=== PATIENT | male | born 1970 | race Caucasian/White ===

== ENCOUNTER 2017-09-21 11:03 | Inpatient (IN) | payer SELFPAY ==
[~2017-09-21] VITALS: Ht 170.2 cm; Wt 76.4 kg
[2017-09-21] VITALS (20 sets, daily range): BP systolic 99–165; BP diastolic 71–100; PULSE 77–107; RESP 15–20; TEMP 97.8–98.8; O2SAT 100
[2017-09-21] MEDS ORDERED: SUCCINYLCHOLINE CHLORIDE 200 MG/10 ML VIAL ONE (11:08)
[2017-09-21] MEDS ORDERED: ETOMIDATE 40 MG/20 ML VIAL ONE (11:08)
[2017-09-21] MEDS ORDERED: PROPOFOL 500 MG/50 ML INJ 50 ML ONE (11:11)
[2017-09-21] MEDS ORDERED: SODIUM CHLOR 0.9% 1000 ML INJ 1,000 ML IV SCH (11:13)
[2017-09-21] MEDS ORDERED: NALOXONE HCL 2 MG/2 ML VIAL IV PUSH ONE (11:15)
[2017-09-21] MEDS ORDERED: SODIUM CHLORIDE 0.9% FLUSH 10 ML FLUSH IV FLUSH PRN ×2 (11:15→15:00)
[2017-09-21] MEDS ORDERED: PROPOFOL 1000 MG/100 ML INJ 100 ML IV PRN ×2 (11:15→17:00)
[2017-09-21] MEDS ORDERED: ETOMIDATE 20 MG/10 ML VIAL IV PUSH ONE (11:15)
[2017-09-21] MEDS ORDERED: SUCCINYLCHOLINE CHLORIDE 100 MG/5 ML SYRINGE IV PUSH ONE (11:15)
--- NOTE | 2017-09-21 11:45 | PD ---
HPI Chief Complaint: Code Blue Time Seen by Provider: 11:13 Travel History International Travel<30 days: No Contact w/Intl Traveler<30days: No Traveled to known affect area: No History of Present Illness HPI The patient is a 47-year-old male who presents emergency department via private vehicle after he became unresponsive and apparently stopped breathing in the car. When triage personnel went to get the patient out of the car, he apparently had no pulse and CPR was instituted. When the patient arrived and echo pod he was deemed ventilated via bag valve ventilations with CPR in progress. Upon physical examination the patient had no spontaneous respirations, did have a palpable femoral pulse that was tachycardic. CPR was halted, the patient continued to be bagged via bag valve ventilation. The patient was noted to have a syringe, insulin type, on his personnel. Accu-Chek was obtained, was 1:15. The patient received Narcan 1 mg intravenously, however , did not awaken. No history is obtainable from the patient and there was no family or friends with the patient when he arrived and echo pod 54. PFSH Past Medical History Cancer: No Diabetes: No Diminished Hearing: No Glaucoma: No Hepatitis: No Hiatal Hernia: No Hypertension: No Immunizations Current: No Thyroid Disease: No Past Surgical History Abdominal Surgery: Yes (BILATERAL INGUINAL HERNIA) Other Surgery: Yes (BILAT HANDS-TENDONS) Social History Alcohol Use: Yes (BEER 2 X WEEK) Tobacco Use: Yes (2 CIGS PER DAY) Substance Use: No Allergies-Medications (Allergen,Severity, Reaction): Coded Allergies: No Known Allergies (Verified Allergy, Unknown, 09/21/17) Reported Meds & Prescriptions Reported Meds & Active Scripts Active No Active Prescriptions or Reported Medications Review of Systems ROS Limitations: Clinical Condition Except as stated in HPI: all other systems reviewed are Neg Neurologic: Positive: Change in Mentation Physical Exam Exam Limitations: Clinical Condition Narrative GENERAL: GCS of 3, diaphoretic, tachycardic, nonresponsive. SKIN: Diaphoretic. HEAD: Atraumatic. Normocephalic. EYES: Pupils are 2 mm bilateral. ENT: No nasal bleeding or discharge. Mucous membranes pink and moist. NECK: Trachea midline. No JVD. CARDIOVASCULAR: Regular, tachycardic with a heart rate in the 120s. RESPIRATORY: No accessory muscle use. Clear to auscultation. Breath sounds equal bilaterally. Bilateral breath sounds via bag valve ventilation. No spontaneous respirations initially. GASTROINTESTINAL: Abdomen soft, non-tender, nondistended. No obvious distention. MUSCULOSKELETAL: No obvious deformities. No clubbing. No cyanosis. No edema. NEUROLOGICAL: GCS of 3. Back: No obvious trauma to the lumbar thoracic region. PSYCHIATRIC: Unable to obtain. Data Data Last Documented VS Vital Signs Date Time Temp Pulse Resp B/P (MAP) Pulse Ox O2 Delivery O2 Flow Rate FiO2 09/21/17 14:27 84 16 124/80 (95) 100 Ventilator 09/21/17 13:50 100 09/21/17 12:46 97.8 10.00 Orders Orders Etomidate Inj (Amidate Inj) (09/21/17 11:08) Succinylcholine Inj (Quelicin Inj) (09/21/17 11:08) Propofol 500 Mg/50 Ml Inj (Diprivan 500 (09/21/17 11:11) Electrocardiogram (09/21/17 11:13) Complete Blood Count With Diff (09/21/17 11:13) Comprehensive Metabolic Panel (09/21/17 11:13) Creatine Kinase (Cpk) (09/21/17 11:13) Prothrombin Time / Inr (Pt) (09/21/17 11:13) Act Partial Throm Time (Ptt) (09/21/17 11:13) Troponin I (09/21/17 11:13) Thyroid Stimulating Hormone (09/21/17 11:13) Urinalysis - C+S If Indicated (09/21/17 11:13) Lactic Acid Sepsis Protocol (09/21/17 11:13) Arterial Blood Gas (Abg) (09/21/17 11:13) Blood Culture (09/21/17 11:13) Chest, Single Ap (09/21/17 11:13) Ct Brain W/O Iv Contrast(Rout) (09/21/17 11:13) Blood Glucose (09/21/17 11:13) Ecg Monitoring (09/21/17 11:13) Iv Access Insert/Monitor (09/21/17 11:13) Oximetry (09/21/17 11:13) Naloxone Inj (Narcan Inj) (09/21/17 11:15) Sodium Chloride 0.9% Flush (Ns Flush) (09/21/17 11:15) Sodium Chlor 0.9% 1000 Ml Inj (Ns 1000 M (09/21/17 11:13) Drug Screen, Random Urine (09/21/17 11:13) Alcohol (Ethanol) (09/21/17 11:13) Propofol 1000 Mg/100 Ml Inj (Diprivan 10 (09/21/17 11:15) Etomidate Inj (Amidate Inj) (09/21/17 11:15) Succinylcholine Inj (Quelicin Inj) (09/21/17 11:15) Ct Pulmonary Angiogram (09/21/17 ) Urinary Catheter Insert/Apply (09/21/17 11:13) CKMB (09/21/17 11:40) CKMB% (09/21/17 11:40) Urine Culture (09/21/17 13:00) Ceftriaxone Inj (Rocephin Inj) (09/21/17 13:30) Potassium Chloride Eff (K-Lyte Cl Eff) (09/21/17 13:30) Potassium Chlor 20 Meq Premix (Kcl 20 Me (09/21/17 13:30) Iohexol 350 Inj (Omnipaque 350 Inj) (09/21/17 13:59) Admit Order (Ed Use Only) (09/21/17 14:39) Labs Laboratory Tests Test 09/21/17 11:30 09/21/17 11:40 09/21/17 11:48 09/21/17 13:00 Lactic Acid Level 2.0 mmol/L Urine Opiates Screen POS Urine Barbiturates Screen NEG Urine Amphetamines Screen POS Urine Benzodiazepines Screen NEG Urine Cocaine Screen NEG Urine Cannabinoids Screen POS White Blood Count 4.3 TH/MM3 Red Blood Count 4.59 MIL/MM3 Hemoglobin 13.7 GM/DL Hematocrit 39.2 % Mean Corpuscular Volume 85.5 FL Mean Corpuscular Hemoglobin 29.9 PG Mean Corpuscular Hemoglobin Concent 35.0 % Red Cell Distribution Width 13.3 % Platelet Count 233 TH/MM3 Mean Platelet Volume 7.0 FL Neutrophils (%) (Auto) 52.2 % Lymphocytes (%) (Auto) 31.7 % Monocytes (%) (Auto) 13.0 % Eosinophils (%) (Auto) 2.5 % Basophils (%) (Auto) 0.6 % Neutrophils # (Auto) 2.3 TH/MM3 Lymphocytes # (Auto) 1.4 TH/MM3 Monocytes # (Auto) 0.6 TH/MM3 Eosinophils # (Auto) 0.1 TH/MM3 Basophils # (Auto) 0.0 TH/MM3 CBC Comment DIFF FINAL Differential Comment Prothrombin Time 12.1 SEC Prothromb Time International Ratio 1.2 RATIO Activated Partial Thromboplast Time 22.7 SEC Blood Urea Nitrogen 8 MG/DL Creatinine 0.85 MG/DL Random Glucose 146 MG/DL Total Protein 6.0 GM/DL Albumin 3.2 GM/DL Calcium Level 7.3 MG/DL Alkaline Phosphatase 58 U/L Aspartate Amino Transf (AST/SGOT) 46 U/L Alanine Aminotransferase (ALT/SGPT) 59 U/L Total Bilirubin 0.6 MG/DL Sodium Level 138 MEQ/L Potassium Level 2.6 MEQ/L Chloride Level 100 MEQ/L Carbon Dioxide Level 29.1 MEQ/L Anion Gap 9 MEQ/L Estimat Glomerular Filtration Rate 97 ML/MIN Protein Corrected Calcium 7.9 MG/DL Total Creatine Kinase 448 U/L Creatine Kinase MB 6.8 NG/ML Creatine Kinase MB % 1.5 % Troponin I LESS THAN 0.02 NG/ML Thyroid Stimulating Hormone 3rd Gen 0.808 uIU/ML Ethyl Alcohol Level LESS THAN 3 MG/DL Blood Gas Puncture Site LT RADIAL Blood Gas Patient Temperature 98.6 Blood Gas HCO3 28 mmol/L Blood Gas Base Excess 3.8 mmol/L Blood Gas Oxygen Saturation 98 % Arterial Blood pH 7.43 Arterial Blood Partial Pressure CO2 43 mmHg Arterial Blood Partial Pressure O2 207 mmHG Arterial Blood Oxygen Content 19.6 Vol % Arterial Blood Carboxyhemoglobin 0.8 % Arterial Blood Methemoglobin 0.6 % Blood Gas Hemoglobin 13.9 G/DL Oxygen Delivery Device VENTILATOR Blood Gas Ventilator Setting A/C 16/500/PEEP5 Blood Gas Inspired Oxygen 50 % Urine Color YELLOW Urine Turbidity HAZY Urine pH 6.0 Urine Specific Magazine 1.027 Urine Protein 100 mg/dL Urine Glucose (UA) NEG mg/dL Urine Ketones 10 mg/dL Urine Occult Blood SMALL Urine Nitrite NEG Urine Bilirubin NEG Urine Urobilinogen 2.0 MG/DL Urine Leukocyte Esterase MOD Urine RBC 3 /hpf Urine WBC 9 /hpf Urine Squamous Epithelial Cells 1 /hpf Urine Transitional Epithelial Cells <1 /hpf Urine Bacteria RARE /hpf Urine Hyaline Casts 9 /lpf Urine Granular Casts 3 /lpf Urine Mucus FEW /lpf Microscopic Urinalysis Comment CATH-CULTURE IND [facility] Medical Decision Making Medical Screen Exam Complete: Yes Emergency Medical Condition: Yes Medical Record Reviewed: Yes Interpretation(s) EKG reveals normal sinus rhythm with a rate of 93. RSR prime V1. Last Impressions Head CT 09/21/17 1113 Signed Impressions: Service Date/Time: Thursday, September 21, 2017 13:59 - CONCLUSION: 1. No acute intracranial abnormality identified. Neftali Tinoco MD Chest X-Ray 09/21/17 1113 Signed Impressions: Service Date/Time: Thursday, September 21, 2017 11:26 - CONCLUSION: 1. Support apparatus in good position. Minimal basilar dependent atelectasis. Chucho Walker MD CT Angiography 09/21/17 0000 Signed Impressions: Service Date/Time: Thursday, September 21, 2017 14:07 - CONCLUSION: 1. There are atelectatic changes in both lower lobes. 2. No pulmonary embolus is identified. 3. Endotracheal and nasogastric tubes in satisfactory position. Neftali Tinoco MD Laboratory Tests Test 09/21/17 11:30 09/21/17 11:40 09/21/17 11:48 09/21/17 13:00 Lactic Acid Level 2.0 mmol/L Urine Opiates Screen POS Urine Barbiturates Screen NEG Urine Amphetamines Screen POS Urine Benzodiazepines Screen NEG Urine Cocaine Screen NEG Urine Cannabinoids Screen POS White Blood Count 4.3 TH/MM3 Red Blood Count 4.59 MIL/MM3 Hemoglobin 13.7 GM/DL Hematocrit 39.2 % Mean Corpuscular Volume 85.5 FL Mean Corpuscular Hemoglobin 29.9 PG Mean Corpuscular Hemoglobin Concent 35.0 % Red Cell Distribution Width 13.3 % Platelet Count 233 TH/MM3 Mean Platelet Volume 7.0 FL Neutrophils (%) (Auto) 52.2 % Lymphocytes (%) (Auto) 31.7 % Monocytes (%) (Auto) 13.0 % Eosinophils (%) (Auto) 2.5 % Basophils (%) (Auto) 0.6 % Neutrophils # (Auto) 2.3 TH/MM3 Lymphocytes # (Auto) 1.4 TH/MM3 Monocytes # (Auto) 0.6 TH/MM3 Eosinophils # (Auto) 0.1 TH/MM3 Basophils # (Auto) 0.0 TH/MM3 CBC Comment DIFF FINAL Differential Comment Prothrombin Time 12.1 SEC Prothromb Time International Ratio 1.2 RATIO Activated Partial Thromboplast Time 22.7 SEC Blood Urea Nitrogen 8 MG/DL Creatinine 0.85 MG/DL Random Glucose 146 MG/DL Total Protein 6.0 GM/DL Albumin 3.2 GM/DL Calcium Level 7.3 MG/DL Alkaline Phosphatase 58 U/L Aspartate Amino Transf (AST/SGOT) 46 U/L Alanine Aminotransferase (ALT/SGPT) 59 U/L Total Bilirubin 0.6 MG/DL Sodium Level 138 MEQ/L Potassium Level 2.6 MEQ/L Chloride Level 100 MEQ/L Carbon Dioxide Level 29.1 MEQ/L Anion Gap 9 MEQ/L Estimat Glomerular Filtration Rate 97 ML/MIN Protein Corrected Calcium 7.9 MG/DL Total Creatine Kinase 448 U/L Creatine Kinase MB 6.8 NG/ML Creatine Kinase MB % 1.5 % Troponin I LESS THAN 0.02 NG/ML Thyroid Stimulating Hormone 3rd Gen 0.808 uIU/ML Ethyl Alcohol Level LESS THAN 3 MG/DL Blood Gas Puncture Site LT RADIAL Blood Gas Patient Temperature 98.6 Blood Gas HCO3 28 mmol/L Blood Gas Base Excess 3.8 mmol/L Blood Gas Oxygen Saturation 98 % Arterial Blood pH 7.43 Arterial Blood Partial Pressure CO2 43 mmHg Arterial Blood Partial Pressure O2 207 mmHG Arterial Blood Oxygen Content 19.6 Vol % Arterial Blood Carboxyhemoglobin 0.8 % Arterial Blood Methemoglobin 0.6 % Blood Gas Hemoglobin 13.9 G/DL Oxygen Delivery Device VENTILATOR Blood Gas Ventilator Setting A/C 16/500/PEEP5 Blood Gas Inspired Oxygen 50 % Urine Color YELLOW Urine Turbidity HAZY Urine pH 6.0 Urine Specific Magazine 1.027 Urine Protein 100 mg/dL Urine Glucose (UA) NEG mg/dL Urine Ketones 10 mg/dL Urine Occult Blood SMALL Urine Nitrite NEG Urine Bilirubin NEG Urine Urobilinogen 2.0 MG/DL Urine Leukocyte Esterase MOD Urine RBC 3 /hpf Urine WBC 9 /hpf Urine Squamous Epithelial Cells 1 /hpf Urine Transitional Epithelial Cells <1 /hpf Urine Bacteria RARE /hpf Urine Hyaline Casts 9 /lpf Urine Granular Casts 3 /lpf Urine Mucus FEW /lpf Microscopic Urinalysis Comment CATH-CULTURE IND Differential Diagnosis Differential diagnosis includes substance abuse, opiate overdose, hypoglycemia, intracranial hemorrhage, pulmonary embolism, dissection, encephalopathy, alcohol intoxication, STEMI. Narrative Course IV was established, labs are drawn and sent, the patient was placed on cardiac telemetry monitoring and continuous pulse oximetry monitoring. The patient's Accu-Chek was 115. Patient was fishing guide Narcan 1 mg intravenously, however, did not awaken. The patient had a pulse, but no visible respiratory effort. Therefore, the patient was intubated using rapid sequence intubation with etomidate and succinylcholine. The patient was noted to be diaphoretic with very poor respiratory effort, may be significant opiate overdose such as fentanyl or heroin. CT the brain and pulmonary angiogram are negative. I had a discussion with the family member who states the patient has a history of IV drug use and was placing things on Facebook in regards to drugs. The patient's tox screen is positive for cannabinoids, methamphetamines, and opiates. The patient has been intubated, will be admitted to the intensive care unit. Critical Care Narrative Aggregate critical care time was 40 minutes. Time to perform other separately billable procedures was not included in the critical care time. My time did not include minutes spent treating any other patients simultaneously or on activities that did not directly contribute to the patient's treatment. The services I provided to this patient were to treat and/or prevent clinically significant deterioration that could result in: Anoxia, hypoxia, aspiration, arrhythmia, . I provided critical care services requiring my management, as noted below: Chart data review, documentation time, medication orders and management, vital sign assessments/reviewing monitor data, ordering and reviewing lab tests, ordering and interpreting/reviewing x-rays and diagnostic studies, care of the patient and discussion of the patient with the admitting physicians. Procedures Procedure Narrative The patient was put in optimal position for the procedure. Rapid sequence intubation was initiated by me using 20 milligrams of etomidate IV and 100 milligrams of succinylcholine IV. The patient was intubated with a 8-0 cuffed endotracheal tube. Tube placement was confirmed by visualization of the tube and balloon passing through the cords, capnometry and subsequent chest x-ray. Breath sounds were equal and well aerated bilaterally postintubation. No breath sounds over stomach. Patient tolerated procedure well. Physician Communication Physician Communication A call was placed the on-call assisted living assistant for admission. I discussed the patient with Dr. Genao who agrees with admission. Diagnosis Primary Impression: Drug overdose Qualified Codes: T50.904A - Poisoning by unspecified drugs, medicaments and biological substances, undetermined, initial encounter Additional Impression: Respiratory distress Admitting Information Admitting Physician Requests: Admit Scripts No Active Prescriptions or Reported Meds Condition: Serious hDiraj Camejo MD Sep 21, 2017 11:45
--- NOTE | 2017-09-21 12:08 | RADRPT ---
EXAM DATE/TIME: 09/21/2017 11:26 [facility] COMPARISON: No previous studies available for comparison. INDICATIONS : Intubation. MEDICAL HISTORY : None. SURGICAL HISTORY : None. ENCOUNTER: Initial ACUITY: 1 day PAIN SCORE: Non-responsive. LOCATION: Bilateral chest FINDINGS: Endotracheal tube tip in satisfactory position. NG enters stomach. Minimal basilar atelectasis. CONCLUSION: 1. Support apparatus in good position. Minimal basilar dependent atelectasis. Chucho Walker MD on September 21, 2017 at 12:05 Board Certified Radiologist. This report was verified electronically.
[2017-09-21 12:09] LABS: AUTOMATED NEUTROPHIL # 2.3 TH/MM3 (1.8-7.7); BASOPHIL % 0.6 % (0.0-2.0); EOSINOPHIL # 0.1 TH/MM3 (0-0.4); EOSINOPHIL % 2.5 % (0.0-4.0); HEMATOCRIT 39.2 % (39.0-51.0); HEMOGLOBIN 13.7 GM/DL (13.0-17.0); LYMPH % 31.7 % (9.0-44.0); LYMPHOCYTE # 1.4 TH/MM3 (1.0-4.8); MEAN CELL VOLUME 85.5 FL (80.0-100.0); MEAN CORPUSCULAR HEMOGLOBIN 29.9 PG (27.0-34.0); MONOCYTE # 0.6 TH/MM3 (0-0.9); NEUT % 52.2 % (16.0-70.0); PLATELET COUNT 233 TH/MM3 (150-450); RED BLOOD COUNT 4.59 MIL/MM3 (4.50-5.90); RED CELL DISTRIBUTION WIDTH 13.3 % (11.6-17.2); WHITE BLOOD COUNT 4.3 TH/MM3 (4.0-11.0)
[2017-09-21 12:19] LABS: INTERNATIONAL NORMALIZED RATIO 1.2 RATIO; PROTHROMBIN TIME - PATIENT 12.1 SEC (9.8-11.6)
[2017-09-21 12:33] LABS: ALBUMIN 3.2 GM/DL (3.4-5.0); ALKALINE PHOSPHATASE 58 U/L (45-117); ALT (GPT) 59 U/L (12-78); AST (GOT) 46 U/L (15-37); BICARBONATE 29.1 MEQ/L (21.0-32.0); BLOOD UREA NITROGEN 8 MG/DL (7-18); CALCIUM 7.3 MG/DL (8.5-10.1); CALCIUM-PROTEIN CORRECTED 7.9 MG/DL (8.5-10.1); CHLORIDE 100 MEQ/L (98-107); CREATININE 0.85 MG/DL (0.60-1.30); GLOMERULAR FILTRATION RATE 97 ML/MIN (>89); GLUCOSE,RANDOM 146 MG/DL (74-106); SODIUM (NA) 138 MEQ/L (136-145); TOTAL BILIRUBIN ADULT 0.6 MG/DL (0.2-1.0); TROPONIN I LESS THAN 0.02 NG/ML (0.02-0.05)
[2017-09-21 13:24] LABS: BACTERIA, URINE RARE /hpf; BILIRUBIN, URINE NEG (NEG); BLOOD, URINE SMALL (NEG); GLUCOSE,URINE NEG (NEG); HYALINE CAST, URINE 9 /lpf (RARE); KETONE, URINE 10 mg/dL (NEG); MUCUS URINE FEW /lpf (OCC); NITRITE,URINE NEG (NEG); SQUAMOUS EPITHELIAL CELL URINE 1 /hpf (0-5); TRANSITIONAL EPI CELLS, URINE <1 /hpf; URINE COLOR YELLOW (YELLW/STRAW); URINE LEUKOCYTE ESTERASE MOD (NEG)
[2017-09-21] MEDS ORDERED: cefTRIAXone INJ 1,000 MG in SODIUM CHLORIDE 0.9% INJ 100 ML IV ONE (13:30)
[2017-09-21] MEDS ORDERED: POTASSIUM CHLOR 20 MEQ PREMIX 100 ML IV ONE (13:30)
[2017-09-21] MEDS: POTASSIUM CHLORIDE 25 MEQ EFFERVESCENT TAB NG SCH (13:41)
[2017-09-21] MEDS ORDERED: IOHEXOL 350 MG/ML 10 ML VIAL (for RAD DIAG) IVCONTRAST ONE (13:59)
--- NOTE | 2017-09-21 14:18 | RADRPT ---
EXAM DATE/TIME: 09/21/2017 13:59 [facility] COMPARISON: No previous studies available for comparison. INDICATIONS : Altered mental status, Syncope, post code, no pulse at the scene. RADIATION DOSE: 52.85 CTDIvol (mGy) ; Tabletop CT Head MEDICAL HISTORY : None SURGICAL HISTORY : Inguinal hernia repair. ENCOUNTER: Initial ACUITY: 1 day PAIN SCALE: Non-responsive LOCATION: cranial TECHNIQUE: Multiple contiguous axial images were obtained of the head. Using automated exposure control and adj ustment of the mA and/or kV according to patient size, radiation dose was kept as low as reasonably a chievable to obtain optimal diagnostic quality images. DICOM format image data is available electro nically for review and comparison. FINDINGS: CEREBRUM: The ventricles are normal for age. No evidence of midline shift, mass lesion, hemorrhage or acute in farction. No extra-axial fluid collections are seen. POSTERIOR FOSSA: The cerebellum and brainstem are intact. The 4th ventricle is midline. The cerebellopontine angle i s unremarkable. EXTRACRANIAL: The visualized portion of the orbits is intact. SKULL: The calvaria is intact. No evidence of skull fracture. CONCLUSION: 1. No acute intracranial abnormality identified. Neftlai Tinoco MD on September 21, 2017 at 14:15 Board Certified Radiologist. This report was verified electronically.
--- NOTE | 2017-09-21 14:20 | RADRPT ---
EXAM DATE/TIME: 09/21/2017 14:07 [facility] COMPARISON: CT BRAIN W/O CONTRAST, September 21, 2017, 13:59. INDICATIONS : Altered mental status, Syncope, post code, no pulse at the scene IV CONTRAST: 75 cc Omnipaque 350 (iohexol) IV RADIATION DOSE: 17.46 CTDIvol (mGy) MEDICAL HISTORY : None SURGICAL HISTORY : Inguinal hernia repair. ENCOUNTER: Initial ACUITY: 1 day PAIN SCALE: Non-responsive LOCATION: chest TECHNIQUE: Volumetric scanning of the chest was performed using a pulmonary embolism protocol MIP images were re constructed. Using automated exposure control and adjustment of the mA and/or kV according to patien t size, radiation dose was kept as low as reasonably achievable to obtain optimal diagnostic quality images. DICOM format image data is available electronically for review and comparison. Follow-up recommendations for detected pulmonary nodules are based at a minimum on nodule size and pa tient risk factors according to Fleischner Society Guidelines. FINDINGS: The examination is of good diagnostic quality. No pulmonary embolus is identified. The heart is normal in size. There is no pericardial effusion identified. No significant hilar, media stinal or axillary adenopathy is present. There is minimal atherosclerotic plaquing in the coronary a rteries. Imaging through the pulmonary parenchyma is provided. These demonstrate atelectatic changes in both l ower lobes. No pleural effusion is seen. No suspicious mass lesions are identified. There is a nasogastric tube present. The limited portions of upper abdomen visualized are unremarkabl e. The endotracheal tube is in satisfactory position. CONCLUSION: 1. There are atelectatic changes in both lower lobes. 2. No pulmonary embolus is identified. 3. Endotracheal and nasogastric tubes in satisfactory position. Neftali Tinoco MD on September 21, 2017 at 14:16 Board Certified Radiologist. This report was verified electronically.
[2017-09-21] MEDS ORDERED: BISACODYL 10 MG SUPP RECTAL PRN (15:00)
[2017-09-21] MEDS ORDERED: MAGNESIUM HYDROXIDE SUSP 30 ML CUP PO PRN (15:00)
[2017-09-21] MEDS ORDERED: POTASSIUM CHLORIDE 25 MEQ EFFERVESCENT TAB PO PRN (15:00)
[2017-09-21] MEDS ORDERED: POTASSIUM CHLOR 40 MEQ PREMIX 100 ML IV-CENTRAL PRN ×2 (15:00)
[2017-09-21] MEDS ORDERED: DEXTROSE 50% IN WATER 50 ML VIAL(D50) IV PUSH PRN (15:00)
[2017-09-21] MEDS ORDERED: LACTULOSE SYRUP 20 GM/30 ML CUP PO PRN (15:00)
[2017-09-21] MEDS ORDERED: GLUCAGON 1 MG/ML VIAL OTHER PRN (15:00)
[2017-09-21] MEDS ORDERED: MAGNESIUM OXIDE 400 MG TAB PO PRN (15:00)
[2017-09-21] MEDS ORDERED: POTASSIUM CHLOR 20 MEQ PREMIX 100 ML IV PRN ×2 (15:00)
[2017-09-21] MEDS ORDERED: POTASSIUM PHOSPHATE INJ 30 MMOL in SODIUM CHLOR 0.9% 250 ML INJ 250 ML IV PRN (15:00)
[2017-09-21] MEDS ORDERED: POTASSIUM PHOSPHATE MONOBASIC 500 MG TAB PO/TUBE PRN (15:00)
[2017-09-21] MEDS ORDERED: SENNOSIDES 8.6 MG TAB PO PRN (15:00)
[2017-09-21] MEDS ORDERED: ONDANSETRON HCL 4 MG/2 ML VIAL IV PUSH PRN (15:00)
[2017-09-21] MEDS ORDERED: POTASSIUM PHOSPHATE MONOBASIC 500 MG TAB PO PRN (15:00)
[2017-09-21] MEDS ORDERED: CHLORHEXIDINE GLUCONATE 2 % 1 PACK (2 CLOTHS) TOP PRN (15:00)
[2017-09-21] MEDS ORDERED: RESP: ALBUTEROL 2.5 MG/3 ML NEB (PRN) INH (15:00)
[2017-09-21] MEDS ORDERED: MAGNESIUM SULFATE INJ 4 GM in SODIUM CHLORIDE 0.9% INJ 92 ML IV PRN (15:00)
[2017-09-21] MEDS ORDERED: MISCELLANEOUS NURSING INFORMATION XX SCH (15:00)
[2017-09-21] MEDS ORDERED: MAGNESIUM SULFATE INJ 2 GM in SODIUM CHLORIDE 0.9% INJ 96 ML IV PRN (15:00)
[2017-09-21] MEDS ORDERED: SODIUM PHOSPHATE INJ 30 MMOL in SODIUM CHLOR 0.9% 250 ML INJ 240 ML IV PRN (15:00)
--- NOTE | 2017-09-21 15:16 | HHI.HP ---
[facility] Service Critical Care Medicine Primary Care Physician No Primary Care Physician Admission Diagnosis drug overdose, respiratory distress Diagnosis: (1) Acute respiratory failure Diagnosis: Principal (2) Cardiopulmonary arrest with successful resuscitation Diagnosis: Principal (3) Tobacco abuse Diagnosis: Secondary (4) Elevated AST (SGOT) Diagnosis: Secondary (5) Elevated CPK Diagnosis: Principal (6) Hyperglycemia Diagnosis: Secondary (7) Hypocalcemia Diagnosis: Principal (8) Hypokalemia Diagnosis: Principal (9) Acute opioid intoxication delirium without use disorder Diagnosis: Principal (10) Tetrahydrocannabinol (THC) use disorder, mild, abuse Diagnosis: Principal (11) Amphetamine user Diagnosis: Principal Chief Complaint: Patient dropped off unresponsive. CPR initiated due to hypotension likely respiratory Travel History International Travel<30 Days: No Contact w/Intl Traveler <30 Da: No Traveled to Known Affected Are: No History of Present Illness 47-year-old male 09/21/2017. Past medical history includes alcohol and tobacco use. Today, this individual presented to the [place] emergency department via private vehicle after he became unresponsive and apparently stopped breathing in the car. When triage personnel went to get the patient out of the car, he apparently had no pulse and CPR was instituted. When the patient arrived and echo pod he was deemed ventilated via bag valve ventilations with CPR in progress. Upon physical examination the patient had no spontaneous respirations, did have a palpable femoral pulse that was tachycardic. CPR was halted, the patient continued to be bagged via bag valve ventilation. The patient was noted to have a syringe, insulin type, on his personnel. Accu-Chek was obtained, was 115 The patient received naloxone 1 mg intravenously, however, did not awaken. No history is obtainable from the patient and there was no family or friends with the patient when he arrived and echo pod 54. She was intubated using 20 mg etomidate and the [address] brain revealed no acute intracranial findings. CT pulmonary angiogram negative. Laboratories revealed a potassium 2.6 which is received 70 mEq, elevated CPK. Normal troponin. TSH 0.8. Urine toxicology screen revealed amphetamines, opiates and THC. Patient is currently arousable on ventilator but not following commands. Sister at bedside states that possible inadvertent drug overdose Review of Systems ROS Limitations: Intubated Past Family Social History Allergies: Coded Allergies: No Known Allergies (Verified Allergy, Unknown, 09/21/17) Past Medical History Alcohol use Tobacco abuse Elevated BMI Past Surgical History bilateral inguinal hernia repair bilateral hand tendon repair Reported Medications None Active Ordered Medications Reviewed in EMR Family History Mother with coronary disease/hypertension. Father with vascular dementia, interstitial hemorrhage and hypertension Social History 2 beers weekly. 2 cigars daily. Urine tox screen positive for opiates, amphetamines and THC Physical Exam Vital Signs Vital Signs Date Time Temp Pulse Resp B/P (MAP) Pulse Ox O2 Delivery O2 Flow Rate FiO2 09/21/17 14:27 84 16 124/80 (95) 100 Ventilator 09/21/17 13:50 100 100 09/21/17 12:46 97.8 82 18 115/90 (98) 100 Ventilator 10.00 50 09/21/17 12:04 86 100 Ventilator 09/21/17 12:03 89 16 128/82 (97) 100 Ventilator 09/21/17 11:49 92 15 133/85 (101) 100 09/21/17 11:31 95 20 100 Ventilator 09/21/17 11:30 100 50 09/21/17 11:29 100 09/21/17 11:15 100 100 09/21/17 11:15 96 16 148/93 (111) 100 Ventilator 09/21/17 11:13 100 09/21/17 11:08 107 20 165/100 (121) 100 10.00 Physical Exam GENERAL: 47-year-old male currently orotracheally intubated SKIN: Warm and dry. Track khan bilateral upper extremities HEAD: Atraumatic. Normocephalic. EYES: Pupils equal and round. No scleral icterus. No injection or drainage. ENT: No nasal bleeding or discharge. Mucous membranes pink and moist. NECK: Trachea midline. No JVD. CARDIOVASCULAR: Regular rate and rhythm. S1, S2 predose without murmur RESPIRATORY: No accessory muscle use. Clear to auscultation. Breath sounds equal bilaterally. GASTROINTESTINAL: Abdomen soft, non-tender, nondistended. Hepatic and splenic margins not palpable. MUSCULOSKELETAL: Extremities without clubbing, cyanosis, or edema. No obvious deformities. NEUROLOGICAL: Arousable to ventilator. Follows commands by moving all 4 extremities. Laboratory Laboratory Tests Test 09/21/17 11:30 09/21/17 11:40 09/21/17 11:48 09/21/17 13:00 Lactic Acid Level 2.0 Urine Opiates Screen POS Urine Barbiturates Screen NEG Urine Amphetamines Screen POS Urine Benzodiazepines Screen NEG Urine Cocaine Screen NEG Urine Cannabinoids Screen POS White Blood Count 4.3 Red Blood Count 4.59 Hemoglobin 13.7 Hematocrit 39.2 Mean Corpuscular Volume 85.5 Mean Corpuscular Hemoglobin 29.9 Mean Corpuscular Hemoglobin Concent 35.0 Red Cell Distribution Width 13.3 Platelet Count 233 Mean Platelet Volume 7.0 Neutrophils (%) (Auto) 52.2 Lymphocytes (%) (Auto) 31.7 Monocytes (%) (Auto) 13.0 Eosinophils (%) (Auto) 2.5 Basophils (%) (Auto) 0.6 Neutrophils # (Auto) 2.3 Lymphocytes # (Auto) 1.4 Monocytes # (Auto) 0.6 Eosinophils # (Auto) 0.1 Basophils # (Auto) 0.0 CBC Comment DIFF FINAL Differential Comment Prothrombin Time 12.1 Prothromb Time International Ratio 1.2 Activated Partial Thromboplast Time 22.7 Blood Urea Nitrogen 8 Creatinine 0.85 Random Glucose 146 Total Protein 6.0 Albumin 3.2 Calcium Level 7.3 Alkaline Phosphatase 58 Aspartate Amino Transf (AST/SGOT) 46 Alanine Aminotransferase (ALT/SGPT) 59 Total Bilirubin 0.6 Sodium Level 138 Potassium Level 2.6 Chloride Level 100 Carbon Dioxide Level 29.1 Anion Gap 9 Estimat Glomerular Filtration Rate 97 Protein Corrected Calcium 7.9 Total Creatine Kinase 448 Creatine Kinase MB 6.8 Creatine Kinase MB % 1.5 Troponin I LESS THAN 0.02 Thyroid Stimulating Hormone 3rd Gen 0.808 Ethyl Alcohol Level LESS THAN 3 Blood Gas Puncture Site LT RADIAL Blood Gas Patient Temperature 98.6 Blood Gas HCO3 28 Blood Gas Base Excess 3.8 Blood Gas Oxygen Saturation 98 Arterial Blood pH 7.43 Arterial Blood Partial Pressure CO2 43 Arterial Blood Partial Pressure O2 207 Arterial Blood Oxygen Content 19.6 Arterial Blood Carboxyhemoglobin 0.8 Arterial Blood Methemoglobin 0.6 Blood Gas Hemoglobin 13.9 Oxygen Delivery Device VENTILATOR Blood Gas Ventilator Setting A/C 16/500/PEEP5 Blood Gas Inspired Oxygen 50 Urine Color YELLOW Urine Turbidity HAZY Urine pH 6.0 Urine Specific [place] 1.027 Urine Protein 100 Urine Glucose (UA) NEG Urine Ketones 10 Urine Occult Blood SMALL Urine Nitrite NEG Urine Bilirubin NEG Urine Urobilinogen 2.0 Urine Leukocyte Esterase MOD Urine RBC 3 Urine WBC 9 Urine Squamous Epithelial Cells 1 Urine Transitional Epithelial Cells <1 Urine Bacteria RARE Urine Hyaline Casts 9 Urine Granular Casts 3 Urine Mucus FEW Microscopic Urinalysis Comment CATH-CULTURE IND Date/Time Source Procedure Growth Status 09/21/17 11:40 Blood Peripheral Aerobic Blood Culture Pending Received 09/21/17 11:40 Blood Peripheral Anaerobic Blood Culture Pending Received 09/21/17 13:00 Urine Clean Catch Urine Culture Pending Received Result Diagram: 09/21/17 1140 09/21/17 1140 Imaging Last Impressions Head CT 09/21/17 1113 Signed Impressions: Service Date/Time: Thursday, September 21, 2017 13:59 - CONCLUSION: 1. No acute intracranial abnormality identified. Neftali Tinoco MD Chest X-Ray 09/21/17 1113 Signed Impressions: Service Date/Time: Thursday, September 21, 2017 11:26 - CONCLUSION: 1. Support apparatus in good position. Minimal basilar dependent atelectasis. Chucho Walker MD CT Angiography 09/21/17 0000 Signed Impressions: Service Date/Time: Thursday, September 21, 2017 14:07 - CONCLUSION: 1. There are atelectatic changes in both lower lobes. 2. No pulmonary embolus is identified. 3. Endotracheal and nasogastric tubes in satisfactory position. Neftali Tinoco MD Septic Shock Reassessment Septic shock perfusion: reassessment completed Caprini VTE Risk Assessment Caprini VTE Risk Assessment: Mod/High Risk (score >= 2) Caprini Risk Assessment Model Point Value = 1 Point Value = 2 Point Value = 3 Point Value = 5 Age 41-60 Minor surgery BMI > 25 kg/m2 Swollen legs Varicose veins or History of unexplained or recurrent spontaneous Oral contraceptives or hormone replacement Sepsis (< 1 month) Serious lung disease, including pneumonia (< 1 month) Abnormal pulmonary function Acute myocardial infarction Congestive heart failure (< 1 month) History of inflammatory bowel disease Medical patient at bed rest Age 61-74 Arthroscopic surgery Major open surgery (> 45 min) Laparoscopic surgery (> 45 min) Malignancy Confined to bed (> 72 hours) Immobilizing plaster cast Central venous access Age >= 75 History of VTE Family history of VTE Factor V Leiden Prothrombin [id number] Lupus anticoagulant Anticardiolipin antibodies Elevated serum homocysteine Heparin-induced thrombocytopenia Other congenital or acquired thrombophilia Stroke (< 1 month) Elective arthroplasty Hip, pelvis, or leg fracture Acute spinal cord injury (< 1 month) Prophylaxis Regimen Total Risk Factor Score Risk Level Prophylaxis Regimen 0-1 Low Early ambulation 2 Moderate Order ONE of the following: *Sequential Compression Device (SCD) *Heparin 5000 units SQ BID 3-4 Higher Order ONE of the following medications: *Heparin 5000 units SQ TID *Enoxaparin/Lovenox 40 mg SQ daily (WT < 150 kg, CrCl > 30 mL/min) *Enoxaparin/Lovenox 30 mg SQ daily (WT < 150 kg, CrCl > 10-29 mL/min) *Enoxaparin/Lovenox 30 mg SQ BID (WT < 150 kg, CrCl > 30 mL/min) AND/OR *Sequential Compression Device (SCD) 5 or more Highest Order ONE of the following medications: *Heparin 5000 units SQ TID (Preferred with Epidurals) *Enoxaparin/Lovenox 40 mg SQ daily (WT < 150 kg, CrCl > 30 mL/min) *Enoxaparin/Lovenox 30 mg SQ daily (WT < 150 kg, CrCl > 10-29 mL/min) *Enoxaparin/Lovenox 30 mg SQ BID (WT < 150 kg, CrCl > 30 mL/min) AND *Sequential Compression Device (SCD) Assessment and Plan Assessment and Plan Neuro/Psych: Acute toxic encephalopathy UDS positive for THC, amphetamines and opiates Propofol/fentanyl drips titrated for sedation/analgesia while intubated Goal of RASS of -[address] brain revealed no acute intracranial findings CV: Cardiopulmonary arrest likely secondary to pulmonary/apnea Initial troponin 0 0.02. EKG revealed no acute ST elevation. Heart rate 93. A complete right bundle branch block. Troponins every 62 days. Check 2D echocardiogram Currently on normal saline at 84 cc an hour Not requiring vasopressors and/or antihypertensives Resp: Acute respiratory failure Tobacco abuse [facility] 16500/07/13/ Ventilator bundle Albuterol/ipratropium aerosols every 6 hours with albuterol aerosols every 2 hours as needed for dyspnea Spontaneous breathing trials when clinically indicated CT pulmonary abdomen revealed no central pulmonary embolus and. Chest x-ray revealed bilateral atelectasis Self education booklet for cessation will be provided when appropriate GI: Elevated AST Hypoalbuminemia Patient is currently n.p.o. NG tube to wall suction Pantoprazole for GI prophylaxis Docusate sodium/senna 1 tablet twice daily for bowel regimen : Tim catheter has been placed for accurate I's and O's in a critically ill patient Endo: Hyperglycemia Novulin R sliding-scale/low regimen with Accu-Cheks every 6 hours to maintain euglycemia TSH 0.80 Renal: Elevated CPK Monitor urine output Accurate I's and O's Recheck BMP and CPK in a.m. Heme: CBC currently within normal limits ID: [id number] questionable Received 1 dose of ceftriaxone 1 g 1 for possible UTI. Continue Sputum culture 1 now MSK: PT evaluate and treat FEN: Hypokalemia Hypocalcemia Replace electrolytes per ICU electrolyte protocol Received 70 mEq KCl in ED. Recheck in 1900 hrs. Access - Utilize peripheral IV. Central line if indicated Prophylaxis -GI -famotidine -DVT -SCD/enoxaparin Critical Care: The total critical care time was 35 minutes. Time to perform other separately billable procedures was not included in the critical care time. Code Status Full code Discussed Condition With Sister. Dr. Camejo/ED physician. Care plan discussed and all questions answered. Problem Qualifiers (1) Acute respiratory failure: Qualified Codes: J96.00 - Acute respiratory failure, unspecified whether with hypoxia or hypercapnia Amos Genao MD Sep 21, 2017 15:16
[2017-09-21 15:48] LABS: MAGNESIUM 2.1 MG/DL (1.5-2.5); PHOSPHORUS 1.7 MG/DL (2.5-4.9)
[2017-09-21] MEDS: RESP: ALBUTEROL 2.5 MG/IPRATROPIUM 0.5 MG NEB (SCH) INH ×2 (16:49→19:54)
[2017-09-21] MEDS ORDERED: fentaNYL DRIP 250 ML IV PRN (17:00)
[2017-09-21] MEDS ORDERED: CALCIUM GLUCONATE INJ 1 GM in SODIUM CHLORIDE 0.9% INJ 100 ML IV ONE (17:30)
[2017-09-21] MEDS: INSULIN NovoLIN REGULAR SUPPLEMENTAL SCALE SQ SCH (18:00)
[2017-09-21] MEDS: ARTIFICIAL TEARS OPTH SOLN 15 ML BTL EACH EYE SCH (18:00)
[2017-09-21] MEDS: SODIUM CHLOR 0.9% 1000 ML INJ 1,000 ML IV SCH (18:52)
[2017-09-21] MEDS: ENOXAPARIN SODIUM 40 MG/0.4 ML SYRINGE SQ SCH (19:15)
[2017-09-21] MEDS: SODIUM CHLORIDE 0.9% FLUSH 10 ML FLUSH IV FLUSH SCH (21:59)
[2017-09-21] MEDS: DOCUSATE SODIUM 50 MG/SENNA 8.6 MG TAB PO SCH (21:59)
[2017-09-21] MEDS: FAMOTIDINE 20 MG/2 ML VIAL IV PUSH SCH (21:59)
[2017-09-21] MEDS: CHLORHEXIDINE 0.12% (ORAL KIT) 15 ML CUP MT SCH (21:59)
[2017-09-22] VITALS (18 sets, daily range): BP systolic 95–133; BP diastolic 57–77; PULSE 75–104; RESP 16–26; TEMP 98–99.7; O2SAT 95–100
[2017-09-22] MEDS: CHLORHEXIDINE GLUCONATE 2 % 1 PACK (2 CLOTHS) TOP SCH (04:00)
[2017-09-22] MEDS: RESP: ALBUTEROL 2.5 MG/IPRATROPIUM 0.5 MG NEB (SCH) INH ×3 (04:01→16:08)
[2017-09-22] MEDS: SODIUM CHLOR 0.9% 1000 ML INJ 1,000 ML IV SCH (04:25)
[2017-09-22 04:29] LABS: AUTOMATED NEUTROPHIL # 4.2 TH/MM3 (1.8-7.7); BASOPHIL % 0.7 % (0.0-2.0); EOSINOPHIL # 0.2 TH/MM3 (0-0.4); EOSINOPHIL % 2.4 % (0.0-4.0); HEMATOCRIT 41.2 % (39.0-51.0); HEMOGLOBIN 14.2 GM/DL (13.0-17.0); LYMPH % 30.2 % (9.0-44.0); LYMPHOCYTE # 2.2 TH/MM3 (1.0-4.8); MEAN CELL VOLUME 86.5 FL (80.0-100.0); MEAN CORPUSCULAR HEMOGLOBIN 29.8 PG (27.0-34.0); MEAN CORPUSCULAR HGB CONC 34.4 % (32.0-36.0); MEAN PLATELET VOLUME 6.8 FL (7.0-11.0); MONO % 8.4 % (0.0-8.0); MONOCYTE # 0.6 TH/MM3 (0-0.9); NEUT % 58.3 % (16.0-70.0); PLATELET COUNT 248 TH/MM3 (150-450); RED BLOOD COUNT 4.76 MIL/MM3 (4.50-5.90); RED CELL DISTRIBUTION WIDTH 13.6 % (11.6-17.2); WHITE BLOOD COUNT 7.3 TH/MM3 (4.0-11.0)
[2017-09-22 04:42] LABS: INTERNATIONAL NORMALIZED RATIO 1.1 RATIO; PROTHROMBIN TIME - PATIENT 11.2 SEC (9.8-11.6)
[2017-09-22 05:15] LABS: ALBUMIN 3.1 GM/DL (3.4-5.0); ALKALINE PHOSPHATASE 61 U/L (45-117); ALT (GPT) 53 U/L (12-78); AST (GOT) 34 U/L (15-37); BICARBONATE 23.3 MEQ/L (21.0-32.0); BLOOD UREA NITROGEN 10 MG/DL (7-18); CALCIUM 8.4 MG/DL (8.5-10.1); CHLORIDE 106 MEQ/L (98-107); CREATININE 0.76 MG/DL (0.60-1.30); GLOMERULAR FILTRATION RATE 110 ML/MIN (>89); GLUCOSE,RANDOM 74 MG/DL (74-106); MAGNESIUM 1.9 MG/DL (1.5-2.5); PHOSPHORUS 2.8 MG/DL (2.5-4.9); SODIUM (NA) 141 MEQ/L (136-145); TOTAL BILIRUBIN ADULT 0.6 MG/DL (0.2-1.0); TROPONIN I LESS THAN 0.02 NG/ML (0.02-0.05)
[2017-09-22] MEDS: INSULIN NovoLIN REGULAR SUPPLEMENTAL SCALE SQ SCH ×5 (05:37→23:37)
[2017-09-22] MEDS: FAMOTIDINE 20 MG/2 ML VIAL IV PUSH SCH ×2 (07:59→19:36)
[2017-09-22] MEDS: DOCUSATE SODIUM 50 MG/SENNA 8.6 MG TAB PO SCH ×2 (07:59→19:36)
[2017-09-22] MEDS: SODIUM CHLORIDE 0.9% FLUSH 10 ML FLUSH IV FLUSH SCH ×2 (08:00→19:36)
[2017-09-22] MEDS: CHLORHEXIDINE 0.12% (ORAL KIT) 15 ML CUP MT SCH ×2 (08:00→19:35)
[2017-09-22] MEDS: ARTIFICIAL TEARS OPTH SOLN 15 ML BTL EACH EYE SCH (08:00)
[2017-09-22] MEDS: POTASSIUM CHLORIDE 25 MEQ EFFERVESCENT TAB NG SCH (08:01)
--- NOTE | 2017-09-22 08:35 | HHI.CCPN ---
Subjective Remarks/Hospital Course 47-year-old male 09/21/2017. Past medical history includes alcohol and tobacco use. Today, this individual presented to the [place] emergency department via private vehicle after he became unresponsive and apparently stopped breathing in the car. When triage personnel went to get the patient out of the car, he apparently had no pulse and CPR was instituted. When the patient arrived and echo pod he was deemed ventilated via bag valve ventilations with CPR in progress. Upon physical examination the patient had no spontaneous respirations, did have a palpable femoral pulse that was tachycardic. CPR was halted, the patient continued to be bagged via bag valve ventilation. The patient was noted to have a syringe, insulin type, on his personnel. Accu-Chek was obtained, was 115 The patient received naloxone 1 mg intravenously, however, did not awaken. No history is obtainable from the patient and there was no family or friends with the patient when he arrived and echo pod 54. She was intubated using 20 mg etomidate and the [address] brain revealed no acute intracranial findings. CT pulmonary angiogram negative. Laboratories revealed a potassium 2.6 which is received 70 mEq, elevated CPK. Normal troponin. TSH 0.8. Urine toxicology screen revealed amphetamines, opiates and THC. Patient is currently arousable on ventilator but not following commands. Sister at bedside states that possible inadvertent drug overdose Subjective 09/22: Resting in bed in no acute distress. Awake and alert and following commands. Will attempt extubation after spontaneous breathing trial and cuff leak. Objective Vital Signs Date Time Temp Pulse Resp B/P (MAP) Pulse Ox O2 Delivery O2 Flow Rate FiO2 09/22/17 08:00 79 09/22/17 07:43 100 35 09/22/17 04:00 98.5 16 95/63 (74) 09/21/17 16:42 Ventilator 09/21/17 12:46 10.00 Result Diagram: 09/22/17 0414 09/22/17 0414 Other Results Microbiology Date/Time Source Procedure Growth Status 09/21/17 11:40 Blood Peripheral Aerobic Blood Culture Pending Received 09/21/17 11:40 Blood Peripheral Anaerobic Blood Culture Pending Received 09/21/17 13:00 Urine Clean Catch Urine Culture Pending Received Imaging Last Impressions Head CT 09/21/17 1113 Signed Impressions: Service Date/Time: Thursday, September 21, 2017 13:59 - CONCLUSION: 1. No acute intracranial abnormality identified. Neftali Tinoco MD Chest X-Ray 09/21/17 1113 Signed Impressions: Service Date/Time: Thursday, September 21, 2017 11:26 - CONCLUSION: 1. Support apparatus in good position. Minimal basilar dependent atelectasis. Chucho Walker MD CT Angiography 09/21/17 0000 Signed Impressions: Service Date/Time: Thursday, September 21, 2017 14:07 - CONCLUSION: 1. There are atelectatic changes in both lower lobes. 2. No pulmonary embolus is identified. 3. Endotracheal and nasogastric tubes in satisfactory position. Neftali Tinoco MD Objective Remarks GENERAL: 47-year-old male currently orotracheally intubated SKIN: Warm and dry. Track khan bilateral upper extremities HEAD: Atraumatic. Normocephalic. EYES: Pupils equal and round. No scleral icterus. No injection or drainage. ENT: No nasal bleeding or discharge. Mucous membranes pink and moist. NECK: Trachea midline. No JVD. CARDIOVASCULAR: Regular rate and rhythm. S1, S2 predose without murmur RESPIRATORY: No accessory muscle use. Clear to auscultation. Breath sounds equal bilaterally. GASTROINTESTINAL: Abdomen soft, non-tender, nondistended. Hepatic and splenic margins not palpable. MUSCULOSKELETAL: Extremities without clubbing, cyanosis, or edema. No obvious deformities. NEUROLOGICAL: Arousable to ventilator. Follows commands by moving all 4 extremities. Urinary Catheter: No Assessment to: Continue Vascular Central Line Catheter: No Assessment to: Continue A/P Assessment and Plan Neuro/Psych: Acute toxic encephalopathy UDS positive for THC, amphetamines and opiates Propofol 30 mcg/kg/min/fentanyl 250 mcg an hour drips titrated for sedation/ analgesia while intubated Goal of RASS of -[address] brain revealed no acute intracranial findings CV: Cardiopulmonary arrest likely secondary to pulmonary/apnea Initial troponin 0 0.02. EKG revealed no acute ST elevation. Heart rate 93. A complete right bundle branch block. Troponins every 62 days. Check 2D echocardiogram Currently on normal saline at 84 cc an hour Not requiring vasopressors and/or antihypertensives Resp: Acute respiratory failure Tobacco abuse [facility] 16500/07/13/29 Ventilator bundle Albuterol/ipratropium aerosols every 6 hours with albuterol aerosols every 2 hours as needed for dyspnea Spontaneous breathing trials when clinically indicated CT pulmonary abdomen revealed no central pulmonary embolus and. Chest x-ray revealed bilateral atelectasis Self education booklet for cessation will be provided when appropriate GI: Elevated AST Hypoalbuminemia Patient is currently n.p.o. NG tube to wall suction Pantoprazole for GI prophylaxis Docusate sodium/senna 1 tablet twice daily for bowel regimen : Tim catheter has been placed for accurate I's and O's in a critically ill patient Endo: Hyperglycemia Novulin R sliding-scale/low regimen with Accu-Cheks every 6 hours to maintain euglycemia TSH 0.80 Renal: Elevated CPK Monitor urine output Accurate I's and O's Recheck BMP and CPK in a.m. Heme: CBC currently within normal limits ID: [id number] questionable Received 1 dose of ceftriaxone 1 g 1 for possible UTI. Continue Sputum culture 1 now MSK: PT evaluate and treat FEN: Hypokalemia Hypocalcemia Replace electrolytes per ICU electrolyte protocol Received 70 mEq KCl in ED. Recheck in 1900 hrs. Access - Utilize peripheral IV. Central line if indicated Prophylaxis -GI -famotidine -DVT -SCD/enoxaparin Level 2 follow-up Extubated. Stable from CCM standpoint. Await Psych Recs. Assign care to hospitalist in AM 09/23. Tx to floor. Amos Genao MD Sep 22, 2017 08:35
[2017-09-22] MEDS ORDERED: POTASSIUM CHLORIDE 20 MEQ PWD PACKET PO ONE ×2 (08:45→14:45)
[2017-09-22] MEDS: POTASSIUM CHLOR 10 MEQ PREMIX 100 ML IV SCH ×3 (09:00→10:48)
[2017-09-22] MEDS: MAGNESIUM SULFATE 1 GM PREMIX 100 ML IV SCH ×2 (09:42→10:47)
[2017-09-22] MEDS: cefTRIAXone INJ 1,000 MG in SODIUM CHLORIDE 0.9% INJ 100 ML IV SCH (13:31)
--- NOTE | 2017-09-22 14:36 | PD.PSY.CON ---
Provisional Diagnosis Admission Date Sep 21, 2017 at 14:42 [place] I. 1. Polysubstance dependence [place] II. Deferred History of Present Illness Service Psychiatry Consult Requested By Dr. Genao Reason for Consult "Admission with drug overdose possibly intentional unclear." Primary Care Physician No Primary Care Physician HPI Mr. Rosales is a 47-year-old male with a history of substance use issues who was brought to the ED by private car in unresponsive state. He was administered Narcan in the ED without effect. He was intubated and transferred to the [facility] Urine toxicology on presentation here was positive for opiates, amphetamines and cannabinoids. Reviewing the electronic medical record, I see no previous psychiatric contact within our system. Patient seen and examined. Chart reviewed. Case discussed with Dr. Genao. Patient's sister Jayne is at the bedside, excused for the interview. On my examination today, the patient is awake and alert with no evidence of ongoing intoxication or of delirium. He denies any symptoms of withdrawal. He tells me that he relapsed to substance use 3 weeks ago after 8 months clean. He says that he had been discussing with a coworker for the 3 days prior to his relapse "how we used to green party" and the urge to use became too strong and so he called his dealer who brought opiates to him in short order. He reports that he usually abuses Dilaudid along with meth and cannabis, but in his presenting overdose he was using heroin, which he usually avoids because it makes him sick. He denies that the presenting overdose was suicidal in nature and insists that it was unintentional. He denies any suicidal or homicidal ideation , intent or plan on direct questioning now and contracts for safety. He denies any issues with mood, and I can elicit no depressive or hypomanic/manic symptoms at present time. He denies any audiovisual hallucinations, and I can elicit no delusional beliefs. There is no evidence of any impairment in reality construction. The remainder of the psychiatric ROS is negative. The patient has no acute physical complaints. Past psychiatric history: The patient reports a history of substance use issues. He denies a history of outpatient psychiatric treatment. He denies a history of inpatient psychiatric treatment. He denies a history of suicide attempts. He denies a history of violent behavior. Family history: The patient denies any family history of serious mental illness or suicide. He does note that his father was a drinker. Chemical dependency history: The patient reports that he used to be a heavy drinker but has been sober for several years. He did recently relapse to opiates as well as methamphetamine and cannabis as noted above. He has never been to rehab and previously stopped using substances on his own noting "I just left the [substance use] scene." He has tried Suboxone in the past. Social history: The patient lives with his parents. He is 4 years. He has 2 sons age 7 and 10 who live with their mother. He has some college and also technical school. He works as an construction electrician. He denies any history. Denies any legal history. He was on probation for criminal mischief but this ended in July. He denies any history of violent crime. He denies any access to guns or firearms. He is "somewhat" hinduism. He denies any history of physical, verbal or sexual abuse. With the patient's permission I obtained collateral from sister Jayne outside the room. She knows of no previous suicide attempts by the patient nor was she given any indication that presenting overdose was suicidal in nature. She notes the patient does have a lengthy history of substance use issues and is concerned about his substance use. I have educated Jayne regarding the [place] act. Review of Systems Except as stated in HPI: all other systems reviewed are Neg Past Family Social History Coded Allergies: No Known Allergies (Verified Allergy, Unknown, 09/21/17) Past Medical History Patient denies any previous medical problems. No Active Prescriptions or Reported Meds Current Medications Medications (Trade) Dose Ordered Sig/Rebeca Route Start Time Stop Time Status Last Admin (K-Lyte Cl Eff) 50 meq ONCE NG 09/21/17 13:30 09/22/17 08:01 (Peridex 0.12% Liq) 15 ml BID@08,20 MT 09/21/17 20:00 09/22/17 08:00 (NS Flush) 2 ml UNSCH PRN IV FLUSH 09/21/17 15:00 (NS Flush) 2 ml BID IV FLUSH 09/21/17 21:00 09/22/17 08:00 (Pepcid Inj) 20 mg Q12HR IV PUSH 09/21/17 21:00 3/17/18 07:59 (Zofran Inj) 4 mg Q6H PRN IV PUSH 09/21/17 15:00 (Duoneb Neb) 1 ampule Q6HR NEB INH 09/21/17 16:00 09/22/17 07:42 (Albuterol Neb) 2.5 mg Q2HR NEB PRN INH 09/21/17 15:00 (Lovenox Inj) 40 mg Q24H SQ 09/21/17 17:00 09/21/17 19:15 Miscellaneous Information 1 Q361D XX 09/21/17 15:00 09/21/17 18:57 (Chlorhexidine 2% Cloth) 3 pack Taper DAILY@04 TOP 09/22/17 04:00 09/18/18 03:59 09/22/17 04:00 (Chlorhexidine 2% Cloth) 3 pack UNSCH PRN TOP 09/21/17 15:00 (Niecy-Colace) 1 tab BID PO 09/21/17 21:00 09/22/17 07:59 (Milk Of Magnesia Liq) 30 ml Q12H PRN PO 09/21/17 15:00 (Senokot) 17.2 mg Q12H PRN PO 09/21/17 15:00 (Dulcolax Supp) 10 mg DAILY PRN RECTAL 09/21/17 15:00 (Lactulose Liq) 30 ml DAILY PRN PO 09/21/17 15:00 Potassium Chloride 100 ml @ 50 mls/hr Q2H PRN IV-CENTRAL 09/21/17 15:00 Potassium Chloride 100 ml @ 50 mls/hr Q2H PRN IV 09/21/17 15:00 (K-Lyte Cl Eff) 50 meq UNSCH PRN PO 09/21/17 15:00 Potassium Chloride 100 ml @ 25 mls/hr UNSCH PRN IV-CENTRAL 09/21/17 15:00 Potassium Chloride 100 ml @ 50 mls/hr Q2H PRN IV 09/21/17 15:00 Magnesium Sulfate 4 gm/Sodium Chloride 100 ml @ 50 mls/hr UNSCH PRN IV 09/21/17 15:00 (Mag-Ox) 800 mg UNSCH PRN PO 09/21/17 15:00 Magnesium Sulfate 2 gm/Sodium Chloride 100 ml @ 50 mls/hr UNSCH PRN IV 09/21/17 15:00 (K-Phos) 2,000 mg Q4H PRN PO 09/21/17 15:00 Sodium Phosphate 30 mmol/Sodium Chloride 250 ml @ 42 mls/hr UNSCH PRN IV 09/21/17 15:00 (K-Phos) 2,000 mg UNSCH PRN PO/TUBE 09/21/17 15:00 Potassium Phosphate 30 mmol/ Sodium Chloride 260 ml @ 42 mls/hr UNSCH PRN IV 09/21/17 15:00 09/21/17 18:51 (D50w (Vial) Inj) 50 ml UNSCH PRN IV PUSH 09/21/17 15:00 (Glucagon Inj) 1 mg UNSCH PRN OTHER 09/21/17 15:00 (NovoLIN R SUPPLEMENTAL SCALE) 1 Q6HR SQ 09/21/17 18:00 09/22/17 12:13 Ceftriaxone Sodium 1000 mg/ Sodium Chloride 100 ml @ 200 mls/hr Q24H IV 09/22/17 14:00 09/22/17 13:31 (KCl Powder) 20 meq ONCE ONCE PO 09/22/17 14:45 09/22/17 14:46 Patient's Strengths (min. 2) Supportive sister. Verbally fluent. Physical Exam Physical exam completed by primary team. On my examination today, the patient appears to be in no acute physical distress. No signs of ongoing intoxication or of withdrawal noted. No diaphoresis, no lacrimation, no rhinorrhea, no piloerection. Labs and vitals reviewed: Vital Signs Vital Signs Date Time Temp Pulse Resp B/P (MAP) Pulse Ox O2 Delivery O2 Flow Rate FiO2 09/22/17 14:00 97 09/22/17 12:00 98.5 21 113/64 (80) 96 09/22/17 08:43 Room Air 21 09/21/17 12:46 10.00 Lab Results Test 09/21/17 15:24 09/21/17 19:00 09/22/17 01:55 09/22/17 04:14 Phosphorus Level 1.7 MG/DL 2.8 MG/DL Magnesium Level 2.1 MG/DL 1.9 MG/DL Nasal Screen MRSA (PCR) MRSA NOT DETECTED Troponin I LESS THAN 0.02 NG/ML LESS THAN 0.02 NG/ML White Blood Count 7.3 TH/MM3 Red Blood Count 4.76 MIL/MM3 Hemoglobin 14.2 GM/DL Hematocrit 41.2 % Mean Corpuscular Volume 86.5 FL Mean Corpuscular Hemoglobin 29.8 PG Mean Corpuscular Hemoglobin Concent 34.4 % Red Cell Distribution Width 13.6 % Platelet Count 248 TH/MM3 Mean Platelet Volume 6.8 FL Neutrophils (%) (Auto) 58.3 % Lymphocytes (%) (Auto) 30.2 % Monocytes (%) (Auto) 8.4 % Eosinophils (%) (Auto) 2.4 % Basophils (%) (Auto) 0.7 % Neutrophils # (Auto) 4.2 TH/MM3 Lymphocytes # (Auto) 2.2 TH/MM3 Monocytes # (Auto) 0.6 TH/MM3 Eosinophils # (Auto) 0.2 TH/MM3 Basophils # (Auto) 0.0 TH/MM3 CBC Comment DIFF FINAL Differential Comment Prothrombin Time 11.2 SEC Prothromb Time International Ratio 1.1 RATIO Activated Partial Thromboplast Time 29.4 SEC Blood Urea Nitrogen 10 MG/DL Creatinine 0.76 MG/DL Random Glucose 74 MG/DL Total Protein 6.0 GM/DL Albumin 3.1 GM/DL Calcium Level 8.4 MG/DL Alkaline Phosphatase 61 U/L Aspartate Amino Transf (AST/SGOT) 34 U/L Alanine Aminotransferase (ALT/SGPT) 53 U/L Total Bilirubin 0.6 MG/DL Sodium Level 141 MEQ/L Potassium Level 3.3 MEQ/L Chloride Level 106 MEQ/L Carbon Dioxide Level 23.3 MEQ/L Anion Gap 12 MEQ/L Estimat Glomerular Filtration Rate 110 ML/MIN Lactic Acid Level 1.4 mmol/L Total Creatine Kinase 504 U/L Creatine Kinase MB 6.3 NG/ML Creatine Kinase MB % 1.3 % Date/Time Source Procedure Growth Status 09/21/17 11:40 Blood Peripheral Aerobic Blood Culture - Preliminary NO GROWTH IN 1 DAY Resulted 09/21/17 11:40 Blood Peripheral Anaerobic Blood Culture - Preliminary NO GROWTH IN 1 DAY Resulted 09/21/17 13:00 Urine Clean Catch Urine Culture - Preliminary NO GROWTH IN 24 HOURS. Resulted Mental Status Examination Appearance: Appropriate (in hospital attire. Fairly well groomed.) Consciousness: Alert Orientation: x4 Motor Activity: Other (no motor abnormalities noted) Speech: Unremarkable Language: Adequate Fund of Knowledge: Adequate Attention and Concentration: Adequate Memory: Unremarkable Mood: Appropriate Affect: Appropriate Thought Process & Associations: Intact, Logical, Linear Thought Content: Appropriate Hallucination Type: None Delusion Type: None Suicidal Ideation: No Suicidal Plan: No Suicidal Intention: No Homicidal Ideation: No Homicidal Plan: No Homicidal Intention: No Mental Status Exam Remarks Insight and judgment are fair at best and may be poor with respect to substance use issues. Assessment & Plan Problem List: (1) Polysubstance dependence ICD Codes: F19.20 - Other psychoactive substance dependence, uncomplicated Assessment & Plan 47-year-old male with psychiatric history as detailed above presently voluntarily admitted to the [facility] after a drug overdose. Patient insists that presenting overdose was unintentional and denies any suicidal or homicidal ideation now. I can detect no unstable mental illness as defined under the [place] act in this patient at this time. Patient's psychiatric issues appear to be substance related and so do not meet [place] Act criteria, nor would he benefit from hospitalization on a general inpatient psychiatric unit. He would benefit from intensive treatment of his substance use disorder, and I have recommended to him drug rehabilitation or at least partial hospitalization/ intensive outpatient treatment, but the patient declines presently. I have recommended 12-step, but the patient insists that he can and will quit using substances on his own. I have recommended ambulatory chemical dependency evaluation and treatment through [facility]. I have recommended that his sister consider a [place] Act. I have counseled the patient regarding warning signs for need to return to the psychiatric emergency room as part of a general safety plan. Case d/w Dr. Genao. Thank you very much for this consultation. Discharge Planning Does not meet BA criteria. Would benefit from Chem Dep referral on discharge. Request Surrog/Guard Advoc?: No Rafael Ramos MD Sep 22, 2017 14:36
[2017-09-22] MEDS: ENOXAPARIN SODIUM 40 MG/0.4 ML SYRINGE SQ SCH (17:22)
[2017-09-22] MEDS: ACETAMINOPHEN 325 MG TAB PO PRN (17:26)
--- NOTE | 2017-09-22 18:14 | EKG ---
Date Performed: 09/21/2017 Time Performed: 11:20:25 PTAGE: 47 years EKG: Sinus rhythm POSSIBLE RIGHT VENTRICULAR CONDUCTION DELAY BORDERLINE ECG NO PREVIOUS TRACING DOCTOR: Hema Maddox Interpretating Date/Time 09/22/2017 18:14:03
--- NOTE | 2017-09-22 18:46 | ECHRPT ---
Indication: HEART FAILURE CONCLUSIONS Normal left ventricular size and wall thickness. The left ventricular systolic function is normal wi th an estimated ejection fraction in the range of 60-65%. Normal wall motion. There is trace tricuspid valve regurgitation. BP: 95 / 63 HR: 79 Rhythm: Sinus MEASUREMENTS (Male / Female) Normal Values Technical Quality:Fair 2D ECHO LV Diastolic Diameter PLAX 5.1 cm 4.2 - 5.9 / 3.9 - 5.3 cm LV Systolic Diameter PLAX 3.8 cm IVS Diastolic Thickness 1.3 cm 0.6 - 1.0 / 0.6 - 0.9 cm LVPW Diastolic Thickness 1.3 cm 0.6 - 1.0 / 0.6 - 0.9 cm LV Relative Wall Thickness 0.5 RV Internal Dim ED PLAX 1.8 cm LVOT Diameter 2.3 cm Aortic Root Diameter 3.1 cm LA Systolic Diameter LX 3.4 cm 3.0 - 4.0 / 2.7 - 3.8 cm M-MODE AV Cusp Separation MM 2.1 cm DOPPLER AV Peak Velocity 141.0 cm/s AV Peak Gradient 8.0 mmHg AV Mean Gradient 4.0 mmHg AV Velocity Time Integral 20.3 cm LVOT Peak Velocity 102.0 cm/s LVOT Peak Gradient 4.2 mmHg LVOT Velocity Time Integral 17.9 cm AV Area Cont Eq vti 3.7 cm AV Area Cont Eq pk 3.0 cm Mitral E Point Velocity 69.1 cm/s Mitral A Point Velocity 72.1 cm/s Mitral E to A Ratio 1.0 LV E' Lateral Velocity 8.5 cm/s Mitral E to LV E' Lateral Ratio 8.1 LV E' Septal Velocity 9.5 cm/s Mitral E to LV E' Septal Ratio 7.3 TR Peak Velocity 270.0 cm/s TR Peak Gradient 29.2 mmHg Right Atrial Pressure 10.0 mmHg Pulmonary Artery Systolic Pressu 39.2 mmHg Right Ventricular Systolic Press 39.2 mmHg PV Peak Velocity 61.7 cm/s PV Peak Gradient 1.5 mmHg FINDINGS LEFT VENTRICLE Normal left ventricular size and wall thickness. The left ventricular systolic function is normal wi th an estimated ejection fraction in the range of 60-65%. Normal wall motion. RIGHT VENTRICLE Normal right ventricular size and systolic function. LEFT ATRIUM The left atrial size is normal. RIGHT ATRIUM The right atrial size is normal. ATRIAL SEPTUM No atrial level shunt is demonstrated by color flow Doppler interrogation. AORTA The aortic root and proximal ascending aorta are not well visualized. MITRAL VALVE Structurally normal mitral valve. No mitral valve stenosis or regurgitation. AORTIC VALVE Trileaflet aortic valve. No aortic valve stenosis or regurgitation. TRICUSPID VALVE There is trace tricuspid valve regurgitation. PULMONARY VALVE No pulmonary valve regurgitation or stenosis. VESSELS The inferior vena cava is normal in size. Yariel Eugene MD (Electronically Signed) Final Date:22 September 2017 18:45
[2017-09-23] VITALS (12 sets, daily range): BP systolic 119–160; BP diastolic 71–86; PULSE 70–109; RESP 14–20; TEMP 97.9–98.2; O2SAT 94–99
[2017-09-23] MEDS: CHLORHEXIDINE GLUCONATE 2 % 1 PACK (2 CLOTHS) TOP SCH (03:21)
[2017-09-23] MEDS: RESP: ALBUTEROL 2.5 MG/IPRATROPIUM 0.5 MG NEB (SCH) INH ×4 (03:24→20:48)
[2017-09-23] MEDS: INSULIN NovoLIN REGULAR SUPPLEMENTAL SCALE SQ SCH ×3 (05:49→18:00)
[2017-09-23] MEDS: CHLORHEXIDINE 0.12% (ORAL KIT) 15 ML CUP MT SCH ×2 (08:00→20:00)
[2017-09-23] MEDS: DOCUSATE SODIUM 50 MG/SENNA 8.6 MG TAB PO SCH ×2 (08:34→21:00)
[2017-09-23] MEDS: FAMOTIDINE 20 MG/2 ML VIAL IV PUSH SCH ×2 (08:34→21:25)
[2017-09-23] MEDS: SODIUM CHLORIDE 0.9% FLUSH 10 ML FLUSH IV FLUSH SCH ×2 (08:34→21:25)
[2017-09-23] MEDS: ACETAMINOPHEN 325 MG TAB PO PRN (08:44)
[2017-09-23 10:44] LABS: HEMATOCRIT 38.7 % (39.0-51.0); HEMOGLOBIN 13.4 GM/DL (13.0-17.0); MEAN CORPUSCULAR HEMOGLOBIN 30.1 PG (27.0-34.0); MEAN CORPUSCULAR HGB CONC 34.6 % (32.0-36.0); MEAN PLATELET VOLUME 7.4 FL (7.0-11.0); PLATELET COUNT 232 TH/MM3 (150-450); RED BLOOD COUNT 4.44 MIL/MM3 (4.50-5.90); RED CELL DISTRIBUTION WIDTH 13.9 % (11.6-17.2); WHITE BLOOD COUNT 6.6 TH/MM3 (4.0-11.0)
[2017-09-23 11:00] LABS: BICARBONATE 25.5 MEQ/L (21.0-32.0); CALCIUM 8.3 MG/DL (8.5-10.1); CREATININE 0.65 MG/DL (0.60-1.30); MAGNESIUM 2.2 MG/DL (1.5-2.5)
[2017-09-23 11:02] LABS: PHOSPHORUS 1.7 MG/DL (2.5-4.9)
[2017-09-23] MEDS: cefTRIAXone INJ 1,000 MG in SODIUM CHLORIDE 0.9% INJ 100 ML IV SCH (14:17)
[2017-09-23] MEDS: ENOXAPARIN SODIUM 40 MG/0.4 ML SYRINGE SQ SCH (16:10)
--- NOTE | 2017-09-23 19:29 | HHI.PR ---
Subjective Remarks Denies cp/sob no events on telemetry Stable vital signs Objective Vitals Vital Signs Date Time Temp Pulse Resp B/P (MAP) Pulse Ox O2 Delivery O2 Flow Rate FiO2 09/23/17 17:59 82 09/23/17 17:44 98 Room Air 09/23/17 16:00 98.0 83 20 144/83 (103) 98 09/23/17 12:46 70 09/23/17 12:46 94 Room Air 09/23/17 12:00 97.9 80 20 143/86 (105) 94 09/23/17 09:48 97 09/23/17 08:00 96 Room Air 09/23/17 08:00 98.2 86 20 144/79 (100) 96 09/23/17 08:00 81 09/23/17 04:00 Room Air 09/23/17 04:00 98.0 87 17 136/78 (97) 99 09/23/17 03:52 81 09/23/17 03:24 96 21 09/23/17 00:00 Room Air 09/23/17 00:00 98.1 82 14 119/71 (87) 95 09/22/17 23:56 80 09/22/17 21:35 99.0 84 16 133/77 (95) 96 09/22/17 21:24 88 09/22/17 21:24 Room Air 09/22/17 20:00 82 09/22/17 20:00 99.7 82 17 128/76 (93) 96 I/O 09/22/17 09/22/17 09/22/17 09/23/17 09/23/17 09/23/17 07:00 15:00 23:00 07:00 15:00 23:00 Intake Total 370 ml 1023 ml 1200 ml 240 ml 480 ml Output Total 900 ml Balance 370 ml 1023 ml 300 ml 240 ml 480 ml Intake Oral 1200 ml 240 ml 480 ml IV Total 370 ml 1023 ml Output Urine Total 900 ml # Voids 4 8 # Bowel Movements 0 Result Diagram: 09/23/17 0830 09/23/17 0830 Imaging Last Impressions Head CT 09/21/17 1113 Signed Impressions: Service Date/Time: Thursday, September 21, 2017 13:59 - CONCLUSION: 1. No acute intracranial abnormality identified. Neftali Tinoco MD Chest X-Ray 09/21/17 1113 Signed Impressions: Service Date/Time: Thursday, September 21, 2017 11:26 - CONCLUSION: 1. Support apparatus in good position. Minimal basilar dependent atelectasis. Chucho Walker MD CT Angiography 09/21/17 0000 Signed Impressions: Service Date/Time: Thursday, September 21, 2017 14:07 - CONCLUSION: 1. There are atelectatic changes in both lower lobes. 2. No pulmonary embolus is identified. 3. Endotracheal and nasogastric tubes in satisfactory position. Neftali Tinoco MD Objective Remarks AAOx3 nad Clear lungs BL Abdomen soft, nt, nd S1S2 RRR, no MRG no edema in lower extremities Medications and IVs Current Medications Medications (Trade) Dose Ordered Sig/Rebeca Route Start Time Stop Time Status Last Admin (K-Lyte Cl Eff) 50 meq ONCE NG 09/21/17 13:30 09/22/17 08:01 (Peridex 0.12% Liq) 15 ml BID@08,20 MT 09/21/17 20:00 09/22/17 08:00 (NS Flush) 2 ml UNSCH PRN IV FLUSH 09/21/17 15:00 (NS Flush) 2 ml BID IV FLUSH 09/21/17 21:00 09/23/17 08:34 (Pepcid Inj) 20 mg Q12HR IV PUSH 09/21/17 21:00 09/23/17 08:34 (Zofran Inj) 4 mg Q6H PRN IV PUSH 09/21/17 15:00 (Duoneb Neb) 1 ampule Q6HR NEB INH 09/21/17 16:00 09/23/17 16:17 (Albuterol Neb) 2.5 mg Q2HR NEB PRN INH 09/21/17 15:00 (Lovenox Inj) 40 mg Q24H SQ 09/21/17 17:00 09/23/17 16:10 Miscellaneous Information 1 Q361D XX 09/21/17 15:00 09/21/17 18:57 (Chlorhexidine 2% Cloth) 3 pack Taper DAILY@04 TOP 09/22/17 04:00 09/18/18 03:59 09/23/17 03:21 (Chlorhexidine 2% Cloth) 3 pack UNSCH PRN TOP 09/21/17 15:00 (Niecy-Colace) 1 tab BID PO 09/21/17 21:00 09/23/17 08:34 (Milk Of Magnesia Liq) 30 ml Q12H PRN PO 09/21/17 15:00 (Senokot) 17.2 mg Q12H PRN PO 09/21/17 15:00 (Dulcolax Supp) 10 mg DAILY PRN RECTAL 09/21/17 15:00 (Lactulose Liq) 30 ml DAILY PRN PO 09/21/17 15:00 (D50w (Vial) Inj) 50 ml UNSCH PRN IV PUSH 09/21/17 15:00 (Glucagon Inj) 1 mg UNSCH PRN OTHER 09/21/17 15:00 (NovoLIN R SUPPLEMENTAL SCALE) 1 Q6HR SQ 09/21/17 18:00 09/22/17 12:13 Ceftriaxone Sodium 1000 mg/ Sodium Chloride 100 ml @ 200 mls/hr Q24H IV 09/22/17 14:00 09/23/17 14:17 (Tylenol) 650 mg Q6H PRN PO 09/22/17 16:30 09/23/17 08:44 A/P Problem List: (1) Acute respiratory failure ICD Code: J96.00 - Acute respiratory failure, unspecified whether with hypoxia or hypercapnia Status: Resolved Plan: Acute respiratory failure secondary to drug overdose, urine toxicology screen revealed amphetamines, opiates and THC.. The patient required intubation with mechanical ventilation due to respiratory arrest. The patient is now extubated, satting 98% on room air. Albuterol/ipratropium aerosols every 6 hours with albuterol aerosols every 2 hours as needed for dyspnea (2) Cardiopulmonary arrest with successful resuscitation ICD Code: I46.9 - Cardiac arrest, cause unspecified Status: Resolved Plan: EKG revealed no acute ST elevation. Complete right bundle branch block. Troponin negative 2. Continue to monitor telemetry. 2D echocardiogram shows a normal left ventricular size and thickness. EF normal in the range of 60-65%. Normal wall motion. Trace tricuspid valve regurgitation. (3) Tobacco abuse ICD Code: Z72.0 - Tobacco use Status: Chronic Plan: Counseled on smoking cessation. (4) Elevated AST (SGOT) ICD Code: R74.0 - Nonspecific elevation of levels of transaminase and lactic acid dehydrogenase [LDH] Status: Resolved Plan: Mild elevation of AST. Within normal range on 09/22. Continue to monitor LFTs. (5) Elevated CPK ICD Code: R74.8 - Abnormal levels of other serum enzymes Status: Acute Plan: CPK mildly elevated. Treated with IV fluids. Last level on 09/22 504. (6) Hyperglycemia ICD Code: R73.9 - Hyperglycemia, unspecified Status: Resolved Plan: Blood sugar has been stable, discontinue Accu-Cheks. The patient denies any history of diabetes. I will check hemoglobin A1c. (7) Hypocalcemia ICD Code: E83.51 - Hypocalcemia Status: Resolved Plan: Replaced with IV calcium chloride. Glycemia resolved. Continue to monitor calcium levels. (8) Hypokalemia ICD Code: E87.6 - Hypokalemia Status: Resolved Plan: Calcium 2.6 on upon admission. Replaced in intensive care unit with IV potassium chloride. Levels within normal range. Potassium today 3.5. Will replace to keep her on for given recent cardiac arrest. (9) Acute opioid intoxication delirium without use disorder ICD Code: F11.921 - Opioid use, unspecified with intoxication delirium Status: Chronic Plan: Psychiatry consulted. Appreciate recommendations. The patient does not meet inpatient psychiatric criteria. [place] act lifted. (10) Tetrahydrocannabinol (THC) use disorder, mild, abuse ICD Code: F12.10 - Cannabis abuse, uncomplicated Status: Chronic Plan: Advised cessation. Psychiatry consulted. (11) Amphetamine user ICD Code: F15.10 - Other stimulant abuse, uncomplicated Status: Chronic Plan: Advised drug cessation. (12) Toxic encephalopathy ICD Code: G92 - Toxic encephalopathy Status: Resolved Plan: Due to drug overdose. Now resolved. Continue to monitor neurological status. Discharge Planning Continue to monitor on telemetry tonight. Discharge in a.m. if stable and no arrhythmias on telemetry. Problem Qualifiers (1) Acute respiratory failure: Qualified Codes: J96.00 - Acute respiratory failure, unspecified whether with hypoxia or hypercapnia Leroy Dhaliwal MD Sep 23, 2017 19:29
[2017-09-23] MEDS ORDERED: POTASSIUM CHLORIDE 10 MEQ CONTROLLED RELEASE TAB PO ONE (20:00)
[2017-09-23] MEDS: POTASSIUM PHOSPHATE/SODIUM PHOSPHATE 250 MG TAB PO SCH ×2 (21:24→23:43)
[2017-09-24] VITALS: BP 152/65; PULSE 87; PULSE 88; RESP 16; TEMP 99; O2SAT 95
[2017-09-24] MEDS: CHLORHEXIDINE GLUCONATE 2 % 1 PACK (2 CLOTHS) TOP SCH (03:00)
[2017-09-24 04:00] VITALS: BP 144/80; PULSE 80; PULSE 95; RESP 18; TEMP 97.4; O2SAT 98
[2017-09-24] MEDS: RESP: ALBUTEROL 2.5 MG/IPRATROPIUM 0.5 MG NEB (SCH) INH ×2 (04:31→08:49)
[2017-09-24] MEDS: POTASSIUM PHOSPHATE/SODIUM PHOSPHATE 250 MG TAB PO SCH ×2 (05:12→12:09)
[2017-09-24] MEDS: ACETAMINOPHEN 325 MG TAB PO PRN (05:16)
[2017-09-24 08:00] VITALS: BP 142/84; PULSE 89; RESP 20; TEMP 98.3; O2SAT 95
[2017-09-24] MEDS: CHLORHEXIDINE 0.12% (ORAL KIT) 15 ML CUP MT SCH (08:00)
[2017-09-24] MEDS: SODIUM CHLORIDE 0.9% FLUSH 10 ML FLUSH IV FLUSH SCH (08:08)
[2017-09-24] MEDS: DOCUSATE SODIUM 50 MG/SENNA 8.6 MG TAB PO SCH (08:08)
[2017-09-24] MEDS: FAMOTIDINE 20 MG/2 ML VIAL IV PUSH SCH (08:09)
[2017-09-24 08:10] VITALS: PULSE 87
[2017-09-24 08:51] VITALS: O2SAT 95
--- NOTE | 2017-09-24 11:17 | HHI.DCPOC ---
Discharge Care Plan Diagnosis: (1) Drug overdose (2) Opioid abuse with intoxication (3) Polysubstance dependence (4) Acute respiratory failure (5) Hypokalemia (6) Hypocalcemia (7) Toxic encephalopathy (8) Hyperglycemia (9) Tobacco abuse (10) Amphetamine user (11) Elevated CPK (12) Elevated AST (SGOT) (13) Acute opioid intoxication delirium without use disorder (14) Cardiopulmonary arrest with successful resuscitation Goals to Promote Your Health * To prevent worsening of your condition and complications * To maintain your health at the optimal level Directions to Meet Your Goals Take your medications as prescribed Follow your dietary instruction Follow activity as directed Keep your appointments as scheduled Take your immunizations and boosters as scheduled If your symptoms worsen call your PCP, if no PCP go to Urgent Care Center or Emergency Room Smoking is Dangerous to Your Health. Avoid second hand smoke Call the 24-hour hour crisis hotline for domestic abuse at Leroy Dhaliwal MD Sep 24, 2017 11:17
--- NOTE | 2017-09-24 12:13 | HHI.DS ---
Discharge Summary Admission Date Sep 21, 2017 at 14:42 Discharge Date: Sep 24, 2017 Admitting Diagnosis drug overdose, respiratory distress (1) Acute respiratory failure ICD Code: J96.00 - Acute respiratory failure, unspecified whether with hypoxia or hypercapnia Diagnosis: Principal Status: Resolved (2) Cardiopulmonary arrest with successful resuscitation ICD Code: I46.9 - Cardiac arrest, cause unspecified Diagnosis: Principal Status: Resolved (3) Tobacco abuse ICD Code: Z72.0 - Tobacco use Diagnosis: Secondary Status: Chronic (4) Elevated AST (SGOT) ICD Code: R74.0 - Nonspecific elevation of levels of transaminase and lactic acid dehydrogenase [LDH] Diagnosis: Principal Status: Resolved (5) Elevated CPK ICD Code: R74.8 - Abnormal levels of other serum enzymes Diagnosis: Principal Status: Acute (6) Hyperglycemia ICD Code: R73.9 - Hyperglycemia, unspecified Diagnosis: Principal Status: Resolved (7) Hypocalcemia ICD Code: E83.51 - Hypocalcemia Diagnosis: Principal Status: Resolved (8) Hypokalemia ICD Code: E87.6 - Hypokalemia Diagnosis: Principal Status: Resolved (9) Acute opioid intoxication delirium without use disorder ICD Code: F11.921 - Opioid use, unspecified with intoxication delirium Diagnosis: Principal Status: Chronic (10) Tetrahydrocannabinol (THC) use disorder, mild, abuse ICD Code: F12.10 - Cannabis abuse, uncomplicated Diagnosis: Principal Status: Chronic (11) Amphetamine user ICD Code: F15.10 - Other stimulant abuse, uncomplicated Diagnosis: Principal Status: Chronic (12) Toxic encephalopathy ICD Code: G92 - Toxic encephalopathy Diagnosis: Principal Status: Resolved Procedures Status post intubation with mechanical ventilation. Brief History - From Admission 47-year-old male 09/21/2017. Past medical history includes alcohol and tobacco use. Today, this individual presented to the [place] emergency department via private vehicle after he became unresponsive and apparently stopped breathing in the car. When triage personnel went to get the patient out of the car, he apparently had no pulse and CPR was instituted. When the patient arrived and echo pod he was deemed ventilated via bag valve ventilations with CPR in progress. Upon physical examination the patient had no spontaneous respirations, did have a palpable femoral pulse that was tachycardic. CPR was halted, the patient continued to be bagged via bag valve ventilation. The patient was noted to have a syringe, insulin type, on his personnel. Accu-Chek was obtained, was 115 The patient received naloxone 1 mg intravenously, however, did not awaken. No history is obtainable from the patient and there was no family or friends with the patient when he arrived and echo pod 54. She was intubated using 20 mg etomidate and the [address] brain revealed no acute intracranial findings. CT pulmonary angiogram negative. Laboratories revealed a potassium 2.6 which is received 70 mEq, elevated CPK. Normal troponin. TSH 0.8. Urine toxicology screen revealed amphetamines, opiates and THC. Patient is currently arousable on ventilator but not following commands. Sister at bedside states that possible inadvertent drug overdose CBC/BMP: 09/23/17 0830 09/23/17 0830 Significant Findings Laboratory Tests Test 09/21/17 13:00 09/21/17 15:24 09/21/17 19:00 09/22/17 01:55 Urine Turbidity HAZY (CLEAR) Urine Protein 100 mg/dL (NEG-TRACE) Urine Ketones 10 mg/dL (NEG) Urine Occult Blood SMALL (NEG) Urine Leukocyte Esterase MOD (NEG) Urine WBC 9 /hpf (0-5) Urine Bacteria RARE /hpf (NONE) Urine Mucus FEW /lpf (OCC) Phosphorus Level 1.7 MG/DL (2.5-4.9) Troponin I LESS THAN 0.02 NG/ML Test 09/22/17 04:14 09/23/17 08:30 Mean Platelet Volume 6.8 FL (7.0-11.0) Monocytes (%) (Auto) 8.4 % (0.0-8.0) Total Protein 6.0 GM/DL (6.4-8.2) Albumin 3.1 GM/DL (3.4-5.0) Calcium Level 8.4 MG/DL (8.5-10.1) 8.3 MG/DL (8.5-10.1) Potassium Level 3.3 MEQ/L (3.5-5.1) Total Creatine Kinase 504 U/L (39-308) Creatine Kinase MB 6.3 NG/ML (0.5-3.6) Troponin I LESS THAN 0.02 NG/ML Red Blood Count 4.44 MIL/MM3 (4.50-5.90) Hematocrit 38.7 % (39.0-51.0) Blood Urea Nitrogen 6 MG/DL (7-18) Phosphorus Level 1.7 MG/DL (2.5-4.9) Imaging Last Impressions Head CT 09/21/17 1113 Signed Impressions: Service Date/Time: Thursday, September 21, 2017 13:59 - CONCLUSION: 1. No acute intracranial abnormality identified. Neftali Tinoco MD Chest X-Ray 09/21/17 1113 Signed Impressions: Service Date/Time: Thursday, September 21, 2017 11:26 - CONCLUSION: 1. Support apparatus in good position. Minimal basilar dependent atelectasis. Chucho Walker MD CT Angiography 09/21/17 0000 Signed Impressions: Service Date/Time: Thursday, September 21, 2017 14:07 - CONCLUSION: 1. There are atelectatic changes in both lower lobes. 2. No pulmonary embolus is identified. 3. Endotracheal and nasogastric tubes in satisfactory position. Neftali Tinoco MD PE at Discharge AAOx3 nad Clear lungs BL Abdomen soft, nt, nd S1S2 RRR, no MRG no edema in lower extremities Pt update on day of discharge The patient denies any chest pain or shortness of breath. No arrhythmias reported on telemetry. Hospital Course The patient was admitted to the intensive care unit. The patient had acute respiratory failure secondary to drug overdose, urine toxicology screen revealed amphetamines, opiates and THC. The patient required intubation with mechanical ventilation due to respiratory arrest. The patient was taken care by the intensivists and extubated. Albuterol/ipratropium nebulizers were prescribed during hospital stay. The patient was counseled on smoking cessation. He was also noted that the patient had mild elevation of AST on admission which quickly returned to normal levels. LFTs were monitored during hospital stay. Patient had also mild elevated CPK which was treated with IV fluids. Last level on 09/22 was 504. Patient also had some hyperglycemia which was likely reactive to stress. Glucose was monitored and the patient became euglycemic. Patient also was found to have hypocalcemia and hypokalemia which were replaced with IV calcium chloride and IV potassium chloride. Last potassium before discharge was 3.5. The patient got an extra oral dose of potassium the day prior to discharge. The patient was instructed to eat a normal healthy diet and to avoid drugs. 2D echocardiogram was also obtained and showed a normal left ventricular size and wall thickness. Ventricular systolic function normal with an estimated ejection fraction in the range of 60- 65%. Trace tricuspid valve regurgitation. Pt Condition on Discharge: Stable Discharge Disposition: Discharge Home Discharge Time: <= 30 minutes Discharge Instructions DIET: Follow Instructions for: As Tolerated, No Restrictions Activities you can perform: Regular-No Restrictions Activities to Avoid: Strenuous Activity Follow up Referrals: PCP Follow-up - 2 Weeks Medication Profile: No Active Prescriptions or Reported Meds Leroy Dhaliwal MD Sep 24, 2017 12:13
== END 2017-09-24 12:57 | disposition home or self-care (01) | DRG 917 ==
LOC: NEPE 11:03 → NEDA 14:42 → HIME 17:50 → N04B 09-22 21:19
PROVIDERS: ADMIT Hospitalist; ATTEND Hospitalist
PROC: 5A1945Z Respiratory Ventilation, 24-96 Consecutive Hours (ICD-10-PCS; principal; 2017-09-21)
PROC: 5A12012 Performance of Cardiac Output, Single, Manual (ICD-10-PCS; 2017-09-21)
PROC: 0BH17EZ Insertion of Endotracheal Airway into Trachea, Via Natural or Artificial Opening (ICD-10-PCS; 2017-09-21)
DX: T40.1X1A Poisoning by heroin, accidental (unintentional), initial encounter (principal); G92 Toxic encephalopathy; J96.00 Acute respiratory failure, unspecified whether with hypoxia or hypercapnia; I46.9 Cardiac arrest, cause unspecified; J98.11 Atelectasis; R40.2432 Glasgow coma scale score 3-8, at arrival to emergency department; R73.9 Hyperglycemia, unspecified; E83.51 Hypocalcemia; E87.6 Hypokalemia; I45.10 Unspecified right bundle-branch block; E88.09 Other disorders of plasma-protein metabolism, not elsewhere classified; R74.8 Abnormal levels of other serum enzymes; F11.229 Opioid dependence with intoxication, unspecified; F15.229 Other stimulant dependence with intoxication, unspecified; F12.229 Cannabis dependence with intoxication, unspecified; F17.210 Nicotine dependence, cigarettes, uncomplicated
CPT/HCPCS: 31500; 36600; 51702; 70450; 71045; 71275; 80048; 80053; 80307; 81001; 82550; 82552; 82805; 82948; 83605; 83735; 84100; 84443; 84484; 85025; 85027; 85610; 85730; 87040; 87086; 87641; 93005; 93306; 94002; 94003; 94150; 94640; 94664; 96365; 96366; 96368; 96375; J0330; J0610; J0696; J1650; J2310; J3475; J3480; J7030; J7050; Q9967